=== PATIENT | female | born 1980 | race Caucasian/White ===

== ENCOUNTER 2021-08-15 08:17 | Emergency (ER) | payer BC ==
[~2021-08-15] VITALS: Ht 172 cm; Wt 90.7 kg
[~2021-08-15 08:17] MED LIST: ACHD5005 PO; AMLO10TA82 PO; BPR100T PO; CLC500CT PO; FLT11013 IH; FLUT1DIS26 IH; GLYB5TAB6 PO; HYDR1TAB PO; IBP600T1 PO; LBT200T PO; MTF500T PO; NF-FLON16G; OMEP20CA12 PO; RNT150T PO; RT-ALBUINH IH; TRAM50TA2 PO
[2021-08-15] MEDS ORDERED: KETOROLAC 30 MG/ML VIAL IVP ONE (10:45)
[2021-08-15 11:06] LABS: BASOPHILS # (AUTO) 0.1 10^3/uL (0.0-0.1); BASOPHILS % (AUTO) 1 % (0-10); EOSINOPHILS # (AUTO) 0.1 10^3/uL (0.0-0.3); EOSINOPHILS % (AUTO) 1 % (0-10); HEMATOCRIT 42 % (35-52); HEMOGLOBIN 13.6 g/dL (11.5-16.0); LYMPHOCYTES # (AUTO) 1.1 10^3/uL (1.0-4.0); LYMPHOCYTES % (AUTO) 12 % (12-44); MEAN CORPUSCULAR HEMOGLOBIN 27 pg (25-34); MEAN CORPUSCULAR HGB CONC 33 g/dL (32-36); MEAN CORPUSCULAR VOLUME 82 fL (80-99); MEAN PLATELET VOLUME 8.6 fL (9.0-12.2); MONOCYTES # (AUTO) 1.1 10^3/uL (0.0-1.0); MONOCYTES % (AUTO) 13 % (0-12); NEUTROPHILS # (AUTO) 6.5 10^3/uL (1.8-7.8); NEUTROPHILS % (AUTO) 73 % (42-75); PLATELET COUNT 304 10^3/uL (130-400); WHITE BLOOD COUNT 8.9 10^3/uL (4.3-11.0)
[2021-08-15 11:23] LABS: POTASSIUM 4.5 MMOL/L (3.6-5.0)
[2021-08-15 11:26] LABS: ERYTHROCYTE SEDIMENTATION RATE 23 MM/HR (0-20)
[2021-08-15 11:28] LABS: CREATININE SERUM 0.72 MG/DL (0.60-1.30)
[2021-08-15] MEDS ORDERED: AMOX-358 PO (11:59)
[2021-08-15] MEDS ORDERED: FLUT9.9S NSEACH (11:59)
--- NOTE | 2021-08-15 11:59 | ED General ---
General Chief Complaint: Facial Problems Stated Complaint: FACIAL SWELLING L SIDE Nursing Triage Note: ARRIVED VIA AMB TO ROOM 07 WITH COMPLAINTS OF LEFT FACIAL SWELLING STARTING YESTERDAY. HX OF SINUS ISSUES. STARTED ON DOXY WHICH MADE HER SICK AND IS NOW CURRENTLY TAKING BACTRIM. Source of Information: Patient Exam Limitations: No Limitations Allergies and Home Medications Allergies Coded Allergies: latex (Verified Allergy, Severe, RASH, 04/29/13) Patient Home Medication List Albuterol Sulfate (Ventolin Hfa) 1 Puff Puff, 2 PUFF IH QID, (Reported) Entered as Reported by: ANDRES LIRA on 04/28/13 235 Amoxicillin/Potassium Clav (Augmentin 875-125 Tablet) 1 Each Tablet, 1 EACH PO BID Prescribed by: TOMAS SOL on 08/15/21 115 Bupropion Hcl (Wellbutrin) 100 Mg Tablet, 3 TAB PO DAILY, (Reported) Entered as Reported by: YONG DAMON on 10/02/11 0708 Calcium Carbonate (Tums) 500 Mg Tab.chew, 500 MG PO PRN, (Reported) Entered as Reported by: RANJEET HARRY on 05/08/12 1854 Fluticasone Propionate (Flonase [place] (Non-Formulary)) 50 Mcg/16 G [place], 50 MCG .ROUTE BID, (Reported) Entered as Reported by: ANDRES LIRA on 04/28/132350 Fluticasone Propionate (Flonase Allergy Relief) 9.9 Ml [place].susp, 2 SPRAY NSEACH DAILY Prescribed by: TOMAS SOL on 08/15/21 115 Fluticasone/Salmeterol (Advair 250 Mcg/50 Mcg 60's) 1 Disk Inhp, 1 PUFF IH BID, (Reported) Entered as Reported by: ANDRES LIRA on 04/28/13 235 Hydrocodone Bit/Acetaminophen (Lorcet 5/325 Mg) 1 Tab Tablet, 1-2 TAB PO q4-6hrs PRN Prescribed by: RODDY SIDDIQI on 05/02/13 08 Ibuprofen (Motrin) 600 Mg Tab, 600 MG PO Q6H Prescribed by: RODDY SIDDIQI on 05/02/13 08 Labetalol Hcl (Labetolol) 200 Mg Tablet, 1 EACH PO BID, (Reported) Entered as Reported by: ANDRES LIRA on 04/28/13 1882 Past Jyhvxnm-Otvwjv-Tmokbf Hx Patient Social History Smoking Status: Never a Smoker Use of E-Cig and/or Vaping Bobby: Never a User Substance use?: No Alcohol Use?: No Immunizations Up To Date Tetanus Booster (TDap): Less than 5yrs Second COVID19 Vaccination Wiliam: 1 YEAR AGO COVID19 Vaccine Jtac: MODERNA Past Medical History Asthma Reproductive Disorders: No Sexually Transmitted Disease: No HIV/AIDS: No Gall Bladder Disease Hearing Impairment: Denies ADD/ADHD Physical Exam Vital Signs Vital Signs - First Documented 08/15/21 08:20 Temp 36.6 Pulse 115 Resp 16 B/P (MAP) 149/103 (118) Pulse Ox 97 O2 Delivery Room Air Capillary Refill : Less Than 3 Seconds Height, Weight, BMI Height: '" Weight: 300lbs. oz. [id number]; 30.00 BMI Method:Stated Progress/Results/Core Measures Suspected Sepsis SIRS Temperature: Pulse: 115 Respiratory Rate: 16 Laboratory Tests 08/15/21 10:55: White Blood Count 8.9 Blood Pressure 149 /103 Mean: 118 Laboratory Tests 08/15/21 10:55: Creatinine 0.72, Platelet Count 304 Results/Orders Lab Results Laboratory Tests Test 08/15/21 10:55 Range/Units White Blood Count 8.9 4.3-11.0 10^3/uL Red Blood Count 5.07 3.80-5.11 10^6/uL Hemoglobin 13.6 11.5-16.0 g/dL Hematocrit 42 35-52 % Mean Corpuscular Volume 82 80-99 fL Mean Corpuscular Hemoglobin 27 25-34 pg Mean Corpuscular Hemoglobin Concent 33 32-36 g/dL Red Cell Distribution Width 12.3 10.0-14.5 % Platelet Count 304 130-400 10^3/uL Mean Platelet Volume 8.6 L 9.0-12.2 fL Immature Granulocyte % (Auto) 0 % Neutrophils (%) (Auto) 73 42-75 % Lymphocytes (%) (Auto) 12 12-44 % Monocytes (%) (Auto) 13 H 0-12 % Eosinophils (%) (Auto) 1 0-10 % Basophils (%) (Auto) 1 0-10 % Neutrophils # (Auto) 6.5 1.8-7.8 10^3/uL Lymphocytes # (Auto) 1.1 1.0-4.0 10^3/uL Monocytes # (Auto) 1.1 H 0.0-1.0 10^3/uL Eosinophils # (Auto) 0.1 0.0-0.3 10^3/uL Basophils # (Auto) 0.1 0.0-0.1 10^3/uL Immature Granulocyte # (Auto) 0.0 0.0-0.1 10^3/uL Erythrocyte Sedimentation Rate 23 H 0-20 MM/HR Sodium Level 130 L 135-145 MMOL/L Potassium Level 4.5 3.6-5.0 MMOL/L Chloride Level 99 98-107 MMOL/L Carbon Dioxide Level 19 L 21-32 MMOL/L Anion Gap 12 5-14 MMOL/L Blood Urea Nitrogen 9 7-18 MG/DL Creatinine 0.72 0.60-1.30 MG/DL Estimat Glomerular Filtration Rate 107 BUN/Creatinine Ratio 13 Glucose Level 311 H 70-105 MG/DL Calcium Level 9.0 8.5-10.1 MG/DL C-Reactive Protein High Sensitivity 10.54 H 0.00-0.50 MG/DL Serum Test, Qualitative NEGATIVE NEGATIVE My Orders Orders - TOMAS CALLEJAS MD Basic Metabolic Panel (08/15/21 10:41) Cbc With Automated Diff (08/15/21 10:41) Hs C Reactive Protein (08/15/21 10:41) Hcg,Qualitative Serum (08/15/21 10:41) Erythrocyte Sedimentation Rate (08/15/21 10:41) Ed Iv/Invasive Line Start (08/15/21 10:41) Ketorolac Injection (Toradol Injection) (08/15/21 10:45) Clindamycin 600 Mg/50 Ml Ivpb (Cleocin P (08/15/21 12:00) Medications Given in ED Current Medications Medications Dose Ordered Sig/Faina Route Start Time Stop Time Status Last Admin Dose Admin Ketorolac Tromethamine 30 mg ONCE ONCE IVP 08/15/21 10:45 08/15/21 10:46 DC 08/15/21 10:56 30 MG Vital Signs/I&O 08/15/21 08:20 Temp 36.6 Pulse 115 Resp 16 B/P (MAP) 149/103 (118) Pulse Ox 97 O2 Delivery Room Air Capillary Refill : Less Than 3 Seconds Blood Pressure Mean: 118 Departure Impression Primary Impression: Cellulitis of face Additional Impressions: Dental decay Chronic sinusitis Qualified Codes: J32.0 - Chronic maxillary sinusitis Disposition: 01 HOME, SELF-CARE Condition: Improved Departure-Patient Inst. Decision time for Depature: 11:54 Referrals: [facility] (PCP) Primary Care Physician FAIZAN REBOLLEDO (Family) Primary Care Physician Patient Instructions: Sinusitis in Adults, Tooth Decay, Adult (DC) Add. Discharge Instructions: The cellulitis of your face may be caused by sinus infection and/or dental abscess. If you are not improving quickly, or if symptoms worsen, you may need a CT scan to help determine the cause. Complete the Bactrim as prescribed and add Augmentin as prescribed. Complete your first dose this afternoon. If your symptoms are not completely resolved by the time you complete the Augmentin, please refill and take another 10 days. If you require the refill, you should follow-up with your ENT provider. You may use Flonase (fluticasone) nasal spray continuously to prevent future sinus problems, especially if you have allergy symptoms. For pain you may use Tylenol (acetaminophen) up to 1000 mg every 6 hours as needed and/or ibuprofen up to 600 mg every 6 hours as needed. Return to care if you have worsening symptoms despite following these recommendations, especially if you develop fevers greater than 100.3. Call with questions or concerns. See your dentist as soon as possible. You will likely need extraction of the eroded molar. All discharge instructions reviewed with patient and/or family. Voiced understanding. Scripts Fluticasone Propionate (Flonase Allergy Relief) 9.9 Ml [place].susp 2 SPRAY NSEACH DAILY, #11 EACH 2 SPRAYS PER NOSTRIL DAILY X 2 DAYS THEN 1 SPRAY DAILY Prov: TOMAS CALLEJAS MD 08/15/21 Amoxicillin/Potassium Clav (Augmentin 875-125 Tablet) 1 Each Tablet 1 EACH PO BID, #20 TAB 1 Refill Prov: TOMAS CALLEJAS MD 08/15/21 TOMAS CALLEJAS MD Aug 15, 2021 11:59
[2021-08-15] MEDS ORDERED: CLINDAMYCIN 600 MG/50 ML IVPB 50 ML IV ONE (12:00)
[2021-08-15 12:51] VITALS: BP 102/75
== END 2021-08-15 12:51 | disposition home or self-care (01) ==
LOC: EDUNIT# 08:17 → ER 08:19
DX: L03.211 Cellulitis of face (principal); K02.9 Dental caries, unspecified; J32.9 Chronic sinusitis, unspecified; J45.909 Unspecified asthma, uncomplicated; Z91.040 Latex allergy status
CPT/HCPCS: 36415; 80048; 84703; 85025; 85652; 86141

== ENCOUNTER 2022-09-30 03:59 | Emergency (ER) | payer BC ==
[~2022-09-30] VITALS: Ht 172.7 cm; Wt 77.1 kg
[~2022-09-30 03:59] MED LIST changes: +AMOX-358 PO; +FLUT9.9S NSEACH
[2022-09-30] MEDS ORDERED: ALPR0.25 PO (04:24)
[2022-09-30] MEDS ORDERED: DULA0.75 SQ (04:24)
[2022-09-30] MEDS ORDERED: METH18TA4 PO (04:24)
[2022-09-30 04:40] LABS: BILIRUBIN,URINE NEGATIVE (NEGATIVE); CLARITY,URINE CLEAR; COLOR,URINE ORANGE; GLUCOSE, URINE (UA) 3+ (NEGATIVE); KETONES,URINE 2+ (NEGATIVE); LEUKOCYTE ESTERASE ,URINE NEGATIVE (NEGATIVE); NITRITE,URINE POSITIVE (NEGATIVE); PH,URINE 6.5 (5-9); PROTEIN,URINE NEGATIVE (NEGATIVE)
[2022-09-30 04:50] LABS: BACTERIA,URINE NEGATIVE /HPF; SQUAMOUS EPITHELIAL CELL,UR RARE /HPF
[2022-09-30] MEDS ORDERED: fentaNYL INJ 100 MCG/2 ML AMP IVP ONE (05:30)
[2022-09-30] MEDS ORDERED: LACTATED RINGERS 1,000 ML IV ONE (05:30)
[2022-09-30 05:47] LABS: BASOPHILS # (AUTO) 0.1 10^3/uL (0.0-0.1); BASOPHILS % (AUTO) 1 % (0-10); EOSINOPHILS # (AUTO) 0.2 10^3/uL (0.0-0.3); EOSINOPHILS % (AUTO) 2 % (0-10); HEMATOCRIT 40 % (35-52); HEMOGLOBIN 13.8 g/dL (11.5-16.0); LYMPHOCYTES # (AUTO) 2.4 10^3/uL (1.0-4.0); LYMPHOCYTES % (AUTO) 29 % (12-44); MEAN CORPUSCULAR HEMOGLOBIN 28 pg (25-34); MEAN CORPUSCULAR HGB CONC 35 g/dL (32-36); MEAN CORPUSCULAR VOLUME 80 fL (80-99); MEAN PLATELET VOLUME 8.6 fL (9.0-12.2); MONOCYTES # (AUTO) 0.8 10^3/uL (0.0-1.0); MONOCYTES % (AUTO) 10 % (0-12); NEUTROPHILS # (AUTO) 4.7 10^3/uL (1.8-7.8); NEUTROPHILS % (AUTO) 57 % (42-75); PLATELET COUNT 309 10^3/uL (130-400); WHITE BLOOD COUNT 8.3 10^3/uL (4.3-11.0)
[2022-09-30 05:51] LABS: ALBUMIN 3.5 GM/DL (3.2-4.5); POTASSIUM 4.2 MMOL/L (3.6-5.0)
[2022-09-30 05:53] LABS: CALCIUM 8.9 MG/DL (8.5-10.1)
[2022-09-30 05:54] LABS: TOTAL PROTEIN 6.4 GM/DL (6.4-8.2)
[2022-09-30 05:57] LABS: CREATININE SERUM 0.69 MG/DL (0.60-1.30)
--- NOTE | 2022-09-30 06:45 | Diagnostic Imaging Report ---
PROCEDURE: CT urinary tract, rule out kidney stone. TECHNIQUE: Multiple contiguous axial images were obtained through the abdomen and pelvis without the use of intravenous contrast. Auto Exposure Controls were utilized during the CT exam to meet ALARA standards for radiation dose reduction. DATE: September 30, 2022. COMPARISON: None. INDICATION: 41-year-old female, right-sided abdominal pain. FINDINGS: There are limitations for evaluation of the abdominal organs, neoplastic processes, abscess, and limited evaluation of the vasculature relating to the lack of intravenous contrast. The visualized portions of the lungs are clear. The heart is not enlarged. There is no identified pericardial effusion. The liver is unremarkable in size and contour. There is mild left intrahepatic bile duct dilation and pneumobilia. The gallbladder is not seen and likely is absent. The common bile duct is not abnormally dilated. Noncontrast evaluation of the pancreatic parenchyma is unremarkable. The spleen is normal in size. There are accessory splenules. The adrenal glands are unremarkable. Noncontrast evaluation of the renal parenchyma is unremarkable. The urinary collecting systems are not distended. There is no identified renal or ureteral stone. Urinary bladder is unremarkable. The intestinal tract is not distended. There is a large volume colonic stool. The appendix is not well seen. There is no identified secondary findings to specifically suggest acute appendicitis. There is no free intraperitoneal air. There is no drainable fluid collection. There is no free fluid in the abdomen or pelvis. There are vascular calcifications noted. There is no identified abnormally enlarged lymph node in the abdomen or pelvis which meets CT size criteria for adenopathy. There is a sclerotic lesion of the L1 vertebral body which is indeterminate measuring 15 mm in size. IMPRESSION: CT ABDOMEN AND PELVIS. 1. No identified acute abnormality in the abdomen or pelvis. 2. Indeterminate 15 mm sclerotic lesion in the L1 vertebral body. Benign lesions including a bone island would be in the differential diagnosis. Malignant lesion such as a sclerotic bone metastasis is also considered. Recommend correlation with patient history and further evaluation with nuclear medicine total body bone scan. 3. Large volume colonic stool. Dictated by: Dictated on workstation # [id number]
[2022-09-30] MEDS ORDERED: KETOROLAC 30 MG/ML VIAL IVP ONE (07:30)
--- NOTE | 2022-09-30 07:33 | ED General ---
General Chief Complaint: Back Problems Stated Complaint: RT SIDE PX Nursing Triage Note: c/o right lower back pain x3 days, worse x2hrs. denies injury. Source of Information: Patient Exam Limitations: No Limitations History of Present Illness Date Seen by Provider: Sep 30, 2022 Time Seen by Provider: 04:03 Initial Comments This 41 year old woman presents to the ER with right lower back pain that started several days ago over the weekend. She presumed this to be from constipation. Pain characterized as a pressure. She went to [facility] yesterday and was presumptively treated for UTI although she reports the UA was negative for pyuria. Treatment was prescribed because she complained of frequency. Pain is now radiating to the RLQ. She has developed headache and nausea. She reports temperature of 100.0 yesterday. Allergies and Home Medications Allergies Coded Allergies: latex (Verified Allergy, Severe, RASH, 04/29/13) Patient Home Medication List Home Medication List Reviewed: Yes Alprazolam (Xanax) 0.25 Mg Tablet, Unknown Dose PO, (Reported) Entered as Reported by: WON YE on 09/30/22423 Last Action: New Order Bupropion Hcl (Wellbutrin) 100 Mg Tablet, 3 TAB PO DAILY, (Reported) Entered as Reported by: YONG DAMON on 10/02/11 0708 Dulaglutide (Trulicity) 0.75 Mg/0.5 Ml Pen.injctr, Unknown Dose SQ, (Reported) Entered as Reported by: WON YE on 09/30/22423 Last Action: New Order Hydrocodone/Acetaminophen (Hydrocodone-Acetamin 5-325 mg) 5 Mg-325 Mg Tablet, 1 TAB PO Q4H PRN for PAIN-MODERATE (5-7) Prescribed by: TOMAS SOL on 09/30/22 0734 Labetalol Hcl (Labetolol) 200 Mg Tablet, 1 EACH PO BID, (Reported) Entered as Reported by: ANDRES LIRA on 04/28/13 2351 Methylphenidate HCl (Concerta) 18 Mg Tab.er.24, Unknown Dose PO, (Reported) Entered as Reported by: WON YE on 09/30/22423 Last Action: New Order Discontinued Medications Albuterol Sulfate (Ventolin Hfa) 1 Puff Puff, 2 PUFF IH QID, (Reported) Discontinued Reason: No Longer Taking Entered as Reported by: ANDRES LIRA on 04/28/132350 Last Action: Discontinued Amoxicillin/Potassium Clav (Augmentin 875-125 Tablet) 1 Each Tablet, 1 EACH PO BID Discontinued Reason: No Longer Taking Prescribed by: TOMAS SOL on 08/15/211158 Last Action: Discontinued Calcium Carbonate (Tums) 500 Mg Tab.chew, 500 MG PO PRN, (Reported) Discontinued Reason: No Longer Taking Entered as Reported by: RANJEET HARRY on 05/08/121853 Last Action: Discontinued Fluticasone Propionate (Flonase Copake (Non-Formulary)) 50 Mcg/16 G Copake, 50 MCG .ROUTE BID, (Reported) Discontinued Reason: No Longer Taking Entered as Reported by: ANDRES LIRA on 04/28/132350 Last Action: Discontinued Fluticasone Propionate (Flonase Allergy Relief) 9.9 Ml Copake.susp, 2 SPRAY NSEACH DAILY Discontinued Reason: No Longer Taking Prescribed by: TOMAS SOL on 08/15/211158 Last Action: Discontinued Fluticasone/Salmeterol (Advair 250 Mcg/50 Mcg 60's) 1 Disk Inhp, 1 PUFF IH BID, (Reported) Discontinued Reason: No Longer Taking Entered as Reported by: ANDRES LIRA on 04/28/132350 Last Action: Discontinued Hydrocodone Bit/Acetaminophen (Lorcet 5/325 Mg) 1 Tab Tablet, 1-2 TAB PO q4-6hrs PRN Discontinued Reason: No Longer Taking Prescribed by: RODDY SIDDIQI on 05/02/13828 Last Action: Discontinued Ibuprofen (Motrin) 600 Mg Tab, 600 MG PO Q6H Discontinued Reason: No Longer Taking Prescribed by: RODDY SIDDIQI on 05/02/13828 Last Action: Discontinued Review of Systems Review of Systems Constitutional: see HPI EENTM: no symptoms reported Respiratory: no symptoms reported Cardiovascular: no symptoms reported Gastrointestinal: see HPI Genitourinary: see HPI; No dysuria; frequency; No hematuria : No Musculoskeletal: see HPI Skin: no symptoms reported Psychiatric/Neurological: See HPI Hematologic/Lymphatic: No Symptoms Reported Immunological/Allergic: no symptoms reported Past Grzzjse-Cwdjdu-Idqxby Hx Patient Social History Tobacco Use?: No Substance use?: No Alcohol Use?: No Pt feels they are or have been: No Immunizations Up To Date Tetanus Booster (TDap): Less than 5yrs First/Initial COVID19 Vaccinat: x2 Second COVID19 Vaccination Wiliam: 1 YEAR AGO Past Medical History Surgery/Hospitalization HX: cholecystectomy, , anxiety, depression, adhd Surgeries: Yes Section, Gallbladder Respiratory: Yes Asthma Cardiac: Yes Hypertension Neurological: No : No Last Menstrual Period: Sep 16, 2022 Reproductive Disorders: No Sexually Transmitted Disease: No HIV/AIDS: No Gastrointestinal: No Gall Bladder Disease Musculoskeletal: No Endocrine: Yes Diabetes, Non-Insulin dep Hearing Impairment: Denies Psychosocial: Yes ADD/ADHD Physical Exam Vital Signs Vital Signs - First Documented 09/30/22 04:17 Temp 36.0 Pulse 100 Resp 16 B/P (MAP) 119/84 (96) Pulse Ox 97 O2 Delivery Room Air Capillary Refill : Less Than 3 Seconds Height, Weight, BMI Height: '" Weight: 300lbs. oz. 136.445133ek; 25.00 BMI Method:Stated General Appearance: No Apparent Distress, WD/WN HEENT: PERRL/EOMI, Normal ENT Inspection, Other (MM dry) Neck: Normal Inspection Respiratory: Lungs Clear, Normal Breath Sounds, No Accessory Muscle Use Cardiovascular: Regular Rate, Rhythm, No Edema, No Murmur Gastrointestinal: Normal Bowel Sounds, Soft; No Distended; Tenderness (RLQ) Back: Normal Inspection, Other (right lumbar paraspinous TTP) Extremity: Normal Inspection, No Calf Tenderness, No Pedal Edema Neurologic/Psychiatric: Alert, Oriented x3, No Motor/Sensory Deficits, Normal Mood/Affect Skin: Normal Color, Warm/Dry Progress/Results/Core Measures Suspected Sepsis SIRS Temperature: Pulse: 100 Respiratory Rate: 16 Laboratory Tests 09/30/22 05:25: White Blood Count 8.3 Blood Pressure 119 /84 Mean: 96 Laboratory Tests 09/30/22 05:25: Creatinine 0.69, Platelet Count 309, Total Bilirubin 1.0 Results/Orders Lab Results Laboratory Tests Test 09/30/22 04:21 09/30/22 05:25 Range/Units Urine Color ORANGE Urine Clarity CLEAR Urine pH 6.5 5-9 Urine Specific [place] 1.010 L 1.016-1.022 Urine Protein NEGATIVE NEGATIVE Urine Glucose (UA) 3+ H NEGATIVE Urine Ketones 2+ H NEGATIVE Urine Nitrite POSITIVE H NEGATIVE Urine Bilirubin NEGATIVE NEGATIVE Urine Urobilinogen 1.0 < = 1.0 MG/DL Urine Leukocyte Esterase NEGATIVE NEGATIVE Urine RBC (Auto) NEGATIVE NEGATIVE Urine RBC NONE /HPF Urine WBC NONE /HPF Urine Squamous Epithelial Cells RARE /HPF Urine Crystals NONE /LPF Urine Bacteria NEGATIVE /HPF Urine Casts NONE /LPF Urine Mucus NEGATIVE /LPF Urine Culture Indicated YES White Blood Count 8.3 4.3-11.0 10^3/uL Red Blood Count 4.98 3.80-5.11 10^6/uL Hemoglobin 13.8 11.5-16.0 g/dL Hematocrit 40 35-52 % Mean Corpuscular Volume 80 80-99 fL Mean Corpuscular Hemoglobin 28 25-34 pg Mean Corpuscular Hemoglobin Concent 35 32-36 g/dL Red Cell Distribution Width 11.5 10.0-14.5 % Platelet Count 309 130-400 10^3/uL Mean Platelet Volume 8.6 L 9.0-12.2 fL Immature Granulocyte % (Auto) 1 % Neutrophils (%) (Auto) 57 42-75 % Lymphocytes (%) (Auto) 29 12-44 % Monocytes (%) (Auto) 10 0-12 % Eosinophils (%) (Auto) 2 0-10 % Basophils (%) (Auto) 1 0-10 % Neutrophils # (Auto) 4.7 1.8-7.8 10^3/uL Lymphocytes # (Auto) 2.4 1.0-4.0 10^3/uL Monocytes # (Auto) 0.8 0.0-1.0 10^3/uL Eosinophils # (Auto) 0.2 0.0-0.3 10^3/uL Basophils # (Auto) 0.1 0.0-0.1 10^3/uL Immature Granulocyte # (Auto) 0.1 0.0-0.1 10^3/uL Sodium Level 132 L 135-145 MMOL/L Potassium Level 4.2 3.6-5.0 MMOL/L Chloride Level 99 98-107 MMOL/L Carbon Dioxide Level 23 21-32 MMOL/L Anion Gap 10 5-14 MMOL/L Blood Urea Nitrogen 11 7-18 MG/DL Creatinine 0.69 0.60-1.30 MG/DL Estimat Glomerular Filtration Rate 110 BUN/Creatinine Ratio 16 Glucose Level 336 H 70-105 MG/DL Calcium Level 8.9 8.5-10.1 MG/DL Corrected Calcium 9.3 8.5-10.1 MG/DL Total Bilirubin 1.0 0.1-1.0 MG/DL Aspartate Amino Transf (AST/SGOT) 13 5-34 U/L Alanine Aminotransferase (ALT/SGPT) 37 0-55 U/L Alkaline Phosphatase 88 40-136 U/L Total Protein 6.4 6.4-8.2 GM/DL Albumin 3.5 3.2-4.5 GM/DL Serum Test, Qualitative NEGATIVE NEGATIVE Micro Results Microbiology 09/30/22 Urine Culture - Final, Complete NO GROWTH My Orders Orders - TOMAS CALLEJAS MD Ua Culture If Indicated (09/30/22 04:03) Urine Culture (09/30/22 04:21) Cbc With Automated Diff (09/30/22 05:17) Comprehensive Metabolic Panel (09/30/22 05:17) Hcg,Qualitative Serum (09/30/22 05:17) Fentanyl Inj (Sublimaze Injection) (09/30/22 05:30) Ct Abd/Pelvis Wo(Kidney Stone) (09/30/22 05:17) Ed Iv/Invasive Line Start (09/30/22 05:17) Lactated Ringers (Lr 1000 Ml Iv Solution (09/30/22 05:30) Ketorolac Injection (Toradol Injection) (09/30/22 07:30) Ketorolac Injection (Toradol Injection) (09/30/22 07:53) Medications Given in ED Vital Signs/I&O 09/30/22 09/30/22 04:17 07:53 Temp 36.0 36.6 Pulse 100 95 Resp 16 16 B/P (MAP) 119/84 (96) 130/88 Pulse Ox 97 98 O2 Delivery Room Air Room Air Capillary Refill : Less Than 3 Seconds Blood Pressure Mean: 96 Progress Note : Progress Note Pain was treated with Fentanyl initially and later with Toradol. Labs were evaluated by me in their entirety including CBC, CMP, UA, and serum hCG. Labs were unremarkable except for hyperglycemia and nitrite positive UA. CT was obtained. This was viewed by me and no acute abnormalities were appreciated on my interpretation. Specifically, there were no pelvic cysts, no evidence of appendicitis or colitis, and no evidence of ureteral stone or hydronephrosis. Radiologist's report noted a hyperdensity in L1. Follow-up with bone scan was recommended. DC instructions were reviewed. Rx provided. A large volume of colonic stool was noted which may have represented constipation. See DC instructions for further discussion. Diagnostic Imaging Diagonstic Imaging: CT Plain Films/CT/US/NM/MRI: abdomen, pelvis Comments NAME: LIONEL WEISS [facility] REC#: [id number] PT STATUS: DEP ER : 1980 PHYSICIAN: TOMAS CALLEJAS MD ADMIT DATE: 09/30/22/ER Signed Date of Exam:09/30/22 CT ABD/PELVIS WO(KIDNEY STONE) PROCEDURE: CT urinary tract, rule out kidney stone. TECHNIQUE: Multiple contiguous axial images were obtained through the abdomen and pelvis without the use of intravenous contrast. Auto Exposure Controls were utilized during the CT exam to meet ALARA standards for radiation dose reduction. DATE: September 30, 2022. COMPARISON: None. INDICATION: 41-year-old female, right-sided abdominal pain. FINDINGS: There are limitations for evaluation of the abdominal organs, neoplastic processes, abscess, and limited evaluation of the vasculature relating to the lack of intravenous contrast. The visualized portions of the lungs are clear. The heart is not enlarged. There is no identified pericardial effusion. The liver is unremarkable in size and contour. There is mild left intrahepatic bile duct dilation and pneumobilia. The gallbladder is not seen and likely is absent. The common bile duct is not abnormally dilated. Noncontrast evaluation of the pancreatic parenchyma is unremarkable. The spleen is normal in size. There are accessory splenules. The adrenal glands are unremarkable. Noncontrast evaluation of the renal parenchyma is unremarkable. The urinary collecting systems are not distended. There is no identified renal or ureteral stone. Urinary bladder is unremarkable. The intestinal tract is not distended. There is a large volume colonic stool. The appendix is not well seen. There is no identified secondary findings to specifically suggest acute appendicitis. There is no free intraperitoneal air. There is no drainable fluid collection. There is no free fluid in the abdomen or pelvis. There are vascular calcifications noted. There is no identified abnormally enlarged lymph node in the abdomen or pelvis which meets CT size criteria for adenopathy. There is a sclerotic lesion of the L1 vertebral body which is indeterminate measuring 15 mm in size. IMPRESSION: CT ABDOMEN AND PELVIS. 1. No identified acute abnormality in the abdomen or pelvis. 2. Indeterminate 15 mm sclerotic lesion in the L1 vertebral body. Benign lesions including a bone island would be in the differential diagnosis. Malignant lesion such as a sclerotic bone metastasis is also considered. Recommend correlation with patient history and further evaluation with nuclear medicine total body bone scan. 3. Large volume colonic stool. Dictated by: Dictated on workstation # [id number] Dict: 09/30/22608 Trans: 09/30/22801 CVB [id number] Interpreted by: LISA HIDALGO MD Electronically signed by: LISA HIDALGO MD 09/30/22801 Departure Impression Primary Impression: Lesion of bone of lumbosacral spine Additional Impressions: Low back pain Qualified Codes: M54.50 - Low back pain, unspecified Right lower quadrant pain Constipation Disposition: 01 HOME, SELF-CARE Condition: Improved Departure-Patient Inst. Decision time for Depature: 07:28 Referrals: [facility] [place] (PCP) Primary Care Physician FAIZAN REBOLLEDO (Family) Primary Care Physician Patient Instructions: Abdominal Pain, Adult ED, Low Back Pain ED Add. Discharge Instructions: The exact cause of your back and abdominal pain is uncertain. Although unlikely, it may be related to a bone lesion seen on the L1 vertebra in the CT scan. This bone lesion needs to be evaluated further. The radiologist recommended a bone scan be performed for further evaluation. For pain you may continue taking Aleve (naproxen) up to 500 mg twice daily. For additional pain relief add either Tylenol (acetaminophen) up to 1000 mg every 6 hours or the hydrocodone as prescribed. Hydrocodone may cause drowsiness so use with caution. Do not drive, operate machinery, or make important decisions while on hydrocodone. Hydrocodone may also cause constipation, so you may wish to use a stool softener like Colace while on hydrocodone. Please call your primary care provider today to arrange follow-up. There was also a large amount of stool in the colon noted on your CT scan. This could represent some constipation. Consume primarily a clear liquid diet until a good bowel movement is produced. You may use a gentle laxative such as MiraLAX 2 or 3 times a day until a good bowel movement is produced. Eat plenty of fruits, vegetables, and whole grains. Avoid excessive meats, cheeses, processed foods, and fast foods. Return to the emergency room if you have worsening symptoms despite following these instructions or if you develop new symptoms such as vomiting, weakness in the legs, numbness in the legs, difficulty controlling bowel or bladder func tion, fever, or numbness in the groin. All discharge instructions reviewed with patient and/or family. Voiced understanding. Scripts Hydrocodone/Acetaminophen (Hydrocodone-Acetamin 5-325 mg) 5 Mg-325 Mg Tablet 1 TAB PO Q4H PRN for PAIN-MODERATE (5-7), #15 TAB Prov: TOMAS CALLEJAS MD 09/30/22 Copy Copies To 1: [facility] [place] TOMAS CALLEJAS MD Sep 30, 2022 07:33
[2022-09-30] MEDS ORDERED: ACHD5005 PO (07:34)
[2022-09-30 07:53] VITALS: BP 130/88
[2022-09-30] MEDS ORDERED: KETOROLAC 30 MG/ML VIAL ONE (07:53)
== END 2022-09-30 07:58 | disposition home or self-care (01) ==
LOC: EDUNIT# 03:59 → ER 04:02
DX: M54.50 Low back pain, unspecified (principal); K59.00 Constipation, unspecified; R10.31 Right lower quadrant pain; E11.65 Type 2 diabetes mellitus with hyperglycemia; Z87.19 Personal history of other diseases of the digestive system; Z90.49 Acquired absence of other specified parts of digestive tract; Z91.040 Latex allergy status
CPT/HCPCS: 36415; 74176; 80053; 81000; 84703; 85025; 87088

== ENCOUNTER → 2022-10-21 | Outpatient (CLI) | payer BC ==
[~2022-10-21] MED LIST changes: +ALPR0.25 PO; +DULA0.75 SQ; +METH18TA4 PO
--- NOTE | 2022-10-21 18:11 | Diagnostic Imaging Report ---
BONE SCAN WHOLE BODY INDICATION: Lesion of lumbosacral vertebrae. COMPARISON: CT abdomen pelvis from 09/30/2022 TECHNIQUE: Anterior and posterior whole body scintigraphic imaging was performed 3 hours after the intravenous administration 26.6 mCi of technetium 99m MDP. FINDINGS: No abnormal radiotracer uptake within the L1 vertebral body. Additionally, no other abnormal foci of radiotracer uptake in the axial or appendicular skeleton. The calvarium is normal in appearance. Kidneys and urinary bladder are normal. IMPRESSION: 1. No abnormal radiotracer activity in the L1 vertebral body. Therefore, the abnormality on CT is highly likely benign bone island. Dictated by: Dictated on workstation # [id number]
== END ==
LOC: CARD 10:36
PROVIDERS: ATTEND Physician Assistant
DX: M89.9 Disorder of bone, unspecified (principal)
CPT/HCPCS: 78306